=== PATIENT | male | born 1985 | race Caucasian/White ===

== ENCOUNTER 2016-10-07 20:06 | Emergency (ER) | payer OTHER ==
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
[~2016-10-07 20:06] MED LIST: FLEXERIL10 MG PO; NAPROSYN250 M1 PO; VOLTAREN50 MG PO
== END 2016-10-07 21:59 | disposition home or self-care (01) ==
LOC: SED 20:06
DX: S13.9XXA Sprain of joints and ligaments of unspecified parts of neck, initial encounter (principal); S23.3XXA Sprain of ligaments of thoracic spine, initial encounter; S50.12XA Contusion of left forearm, initial encounter; F17.210 Nicotine dependence, cigarettes, uncomplicated; Z79.899 Other long term (current) drug therapy; V43.52XA Car driver injured in collision with other type car in traffic accident, initial encounter
CPT/HCPCS: 72040; 72072; 73090; 90715; 99284

== ENCOUNTER 2016-11-04 13:52 | Emergency (ER) | payer OTHER | END 2016-11-04 14:22 | disposition home or self-care (01) | LOC: SED 13:52 | DX: S05.01XA Injury of conjunctiva and corneal abrasion without foreign body, right eye, initial encounter (principal); F17.210 Nicotine dependence, cigarettes, uncomplicated; X58.XXXA Exposure to other specified factors, initial encounter; Y92.9 Unspecified place or not applicable | CPT/HCPCS: 99283 ==